=== PATIENT | male | born 1965 | race Caucasian/White ===

== ENCOUNTER 2016-09-07 22:54 | Emergency (ER) | payer OTHER ==
[~2016-09-07] VITALS: Ht 162.6 cm; Wt 90.0 kg
[~2016-09-07 22:54] MED LIST: ATOR80TA PO
--- OUTSIDE RECORDS SUMMARY | 2016-09-07 22:58 | XMS REPORT | Continuity of Care Document ---
Author Author [facility] Address Unknown Phone Unavailable Allergies Active Description Code Type Severity Reaction Onset Reported/Identified Relationship to Patient Clinical Status Yes No Known Allergies [id number] Drug Allergy Unknown N/A 02/28/2014 Medications Problems Date Dx Coded Attending Type Code Diagnosis Diagnosed By 02/28/2014 JACKI RAMIREZ, DILLAN Ot 462 ACUTE PHARYNGITIS 02/28/2014 JACKI RAMIREZ, DILLAN Ot 490 BRONCHITIS NOS Procedures Results Encounters ACCT No. Visit Date/Time Discharge Status Pt. Type Provider Facility Loc./Unit Complaint [id number] 02/28/2014 18:57:00 2013 22:31:00 DIS Emergency JACKI RAMIREZ, [facility] ED
--- OUTSIDE RECORDS SUMMARY | 2016-09-07 23:00 | XMS REPORT | Continuity of Care Document ---
Author Author [facility] Address Unknown Phone Unavailable Allergies Active Description Code Type Severity Reaction Onset Reported/Identified Relationship to Patient Clinical Status Yes No Known Allergies [id number] Drug Allergy Unknown N/A 02/28/2014 Medications Problems Date Dx Coded Attending Type Code Diagnosis Diagnosed By 02/28/2014 JACKI RAMIREZ, DILLAN Ot 462 ACUTE PHARYNGITIS 02/28/2014 JACKI RAMIREZ, DILLAN Ot [address] BRONCHITIS NOS Procedures Results Encounters ACCT No. Visit Date/Time Discharge Status Pt. Type Provider Facility Loc./Unit Complaint [id number] 02/28/2014 18:57:00 2013 22:31:00 DIS Emergency JACKI RAMIREZ, [facility] ED
[2016-09-07] MEDS ORDERED: ASPIRIN 81 MG CHEW (LOW-DOSE) PO ONE (23:20)
[2016-09-07] MEDS ORDERED: SODIUM CHLORIDE FLUSH 10 ML SYR IV PRN (23:20)
[2016-09-07] MEDS ORDERED: SODIUM CHLORIDE FLUSH 3 ML SYR IV PRN (23:20)
[2016-09-07] MEDS ORDERED: SODIUM CHLORIDE 250 ML IV PRN (23:20)
[2016-09-07] MEDS ORDERED: KETOROLAC 30 MG/ML (TORADOL) 1 ML VIAL IV ONE (23:30)
[2016-09-08 00:11] LABS: ALBUMIN 4.3 g/dL (3.4-5.0); ALKALINE PHOSPHATASE 106 U/L (38-126); ANION GAP 14.2 MEQ/L (3-15); BUN/CREATININE RATIO 28 (10-20); CALCULATED IONIZED CALCIUM 4.1 mg/dL (3.8-4.6); CREATINE KINASE 154 U/L (55-170); TOTAL PROTEIN 7.1 g/dL (6.4-8.5)
[2016-09-08 00:15] LABS: BASOPHILS % (AUTO) 0 % (0-2); EOSINOPHILS # (AUTO) 0.4 10^3uL; EOSINOPHILS % (AUTO) 3 % (0-4); LYMPHOCYTES # (AUTO) 1.6 X10^3; MEAN CORPUSCULAR HGB CONC 34.7 g/dL (31.0-37.0); MEAN CORPUSCULAR VOLUME 93 FL (80-100); MEAN PLATELET VOLUME 10.9 FL (6.0-9.5); MONOCYTES # (AUTO) 0.9 X10^3; MONOCYTES % (AUTO) 7 % (3-11); NEUTROPHILS # (AUTO) 9.7 X10^3; NEUTROPHILS % (AUTO) 76 % (51-67); PLATELET COUNT 199 10^3uL (150-450)
[2016-09-08 00:18] LABS: MEAN CORPUSCULAR HEMOGLOBIN 32.2 PG (26.0-34.0)
[2016-09-08] MEDS ORDERED: NITROGLYCERIN SUBLINGUAL 0.4 MG (NITROQUICK) TABLET SL PRN (01:35)
[2016-09-08 02:23] VITALS: BP 115/83
--- NOTE | 2016-09-08 07:43 | Diagnostic Imaging Report ---
EXAMINATION: Chest radiograph, portable AP view. DATE: September 08, 2016 at 0027 hours. INDICATION: 51-year-old male, right-sided chest pain. COMPARISON: February 28, 2014. FINDINGS: Stable overall appearance of the cardiomediastinal silhouette. There is no identified pneumothorax. There is no large pleural effusion. There is no identified focal airspace consolidation. IMPRESSION: No identified acute cardiopulmonary abnormality. Dictated by: Dictated on workstation # [id number]
== END 2016-09-08 02:22 | disposition left against medical advice (07) ==
LOC: ED 22:56
DX: M25.511 Pain in right shoulder (principal); F17.210 Nicotine dependence, cigarettes, uncomplicated
CPT/HCPCS: 36415; 71010; 80053; 82550; 82553; 83880; 84484; 85025; 85610; 85730; 93005; 96361; 96374; 99285; J1885; J7050; 99282

== ENCOUNTER → 2016-09-14 | Outpatient (CLI) | payer OTHER ==
--- NOTE | 2016-09-14 17:08 | Diagnostic Imaging Report ---
PROCEDURE: MR imaging cervical spine without contrast. INDICATION: Neck pain and arm numbness. TECHNIQUE: Multiplanar, multisequence MR imaging of the cervical spine was performed without contrast. CORRELATION STUDY: None. FINDINGS: There is straightening of the normal cervical lordosis. Trace anterolisthesis of C2 on C3. Cervical vertebral body heights are maintained. No geographic lesion. The odontoid unremarkable. The cervicocranial junction appearing unremarkable. C2-C3 level demonstrates loss of disc space height. Broad-based disc bulge and rather prominent posterior spondylitic ridging is noted. There is narrowing of the cervical spinal canal to 7-8 mm. There is very slight contour deformity about the cord which appears to be slightly flattened. There is essentially no surrounding CSF at this level. Bilateral foraminal narrowing also present. C3-C4 level with mild loss of disc space height. AP dimension of the spinal canal at just under 1 cm. No significant disc bulge or protrusion. No significant foraminal narrowing. C4-C5 and C5-C6 levels also demonstrate very mild posterior spondylitic ridging. Minimal effacement of the ventral thecal sac. However, no significant canal or foraminal stenosis suggested. C6-C7 level, mild posterior spondylitic ridging and minimal spurring is present. There is mild flattening of the ventral thecal sac. Minimal effacement of the perineural fat but without significant stenosis suggested. C7-T1 level demonstrates no suggestion for significant stenosis. The overall caliber of the cervical spinal canal does appear to be somewhat small, likely on a congenital or developmental basis. IMPRESSION: Multilevel cervical spondylosis. Spinal canal and foraminal narrowing appears to be most pronounced at C2-C3 and to perhaps slightly lesser extent at C3-C4 level. At C2-C3 level, there is slight contour deformity about the cord with essentially absence of any significant surrounding CSF. Dictated by: Dictated on workstation # [id number]
== END ==
LOC: RAD 14:26
PROVIDERS: ATTEND Family Medicine
DX: M54.12 Radiculopathy, cervical region (principal); M47.892 Other spondylosis, cervical region
CPT/HCPCS: 72141